=== PATIENT | male | born 1975 | race Caucasian/White ===

== ENCOUNTER 2022-05-11 20:15 | Emergency (ER) | payer MEDICAID ==
[~2022-05-11] VITALS: Ht 186 cm; Wt 142.0 kg
[2022-05-11 20:28] VITALS: BP 154/107
[2022-05-11] MEDS ORDERED: AMOXICILLIN 500 MG (POLYMOX) CAP PO STA (20:47)
[2022-05-11] MEDS ORDERED: PENI500T PO (20:50)
[2022-05-11] MEDS ORDERED: ACHD5005 PO (20:50)
--- NOTE | 2022-05-11 20:51 | ED EENT ---
History of Present Illness General Chief Complaint: Dental Problems/Pain Stated Complaint: DENTAL PAIN Nursing Triage Note: PT STATES RT UPPER DENTAL PAIN FROM A PREVIOUS ISSUE, PRESSURE IN NASAL AREA Source: patient Exam Limitations: no limitations History of Present Illness Date Seen by Provider: May 11, 2022 Time Seen by Provider: 20:49 Initial Comments Patient is a 46-year-old male who presents ED with right upper dental pain. Dental pain started this morning when he woke up. Described as a sharp pain in his right upper tooth. Pain radiating to the right eye with some swelling. History of similar symptoms in the past with a history of similar type pain. Reports worsening swelling. He has a scheduled follow-up with primary care physician tomorrow. Is been taking Tylenol ibuprofen without much improvement. Denies any trauma, visual changes, vomiting, headache, dizziness Allergies and Home Medications Allergies Coded Allergies: No Known Drug Allergies (Unverified , 05/11/22) Patient Home Medication List Home Medication List Reviewed: Yes Hydrocodone/Acetaminophen (Hydrocodone-Acetamin 5-325 mg) 5 Mg-325 Mg Tablet, 1 TAB PO Q4H PRN for PAIN-MODERATE (5-7) Prescribed by: PETAR NICE on 05/11/222050 Penicillin V Potassium (Penicillin V Potassium) 500 Mg Tablet, 500 MG PO QID Prescribed by: PETAR NICE on 05/11/222049 Review of Systems Review of Systems Constitutional: No chills, No diaphoresis, No malaise, No weakness Eyes: Denies Blurred Vision, Denies Decreased Acuity, Denies Photophobia, Denies Previous Injury Ears: Denies Dizziness, Denies Pain, Denies Purulent Discharge Nose: denies clots, denies congestion, denies pain Mouth: pain Throat: denies swelling, denies discharge, denies neck stiffness Cardiovascular: No chest pain Gastrointestinal: No abdominal pain, No diarrhea Musculoskeletal: No back pain, No joint pain All Other Systems Reviewed Negative Unless Noted: Yes Past Ebbfygj-Bxtlxx-Zwdekz Hx Patient Social History Tobacco Use?: Yes Smoking Status: Current Someday Smoker Use of E-Cig and/or Vaping dev: Yes E-Cig or Vaping type used: Nicotine Substance use?: No Alcohol Use?: Yes Alcohol type: Beer Alcohol Frequency: Once in a while Immunizations Up To Date First/Initial COVID19 Vaccinat: NO Past Medical History Surgery/Hospitalization HX: HTN Physical Exam Vital Signs Vital Signs - First Documented 05/11/22 20:28 Temp 36.4 Pulse 71 Resp 20 B/P (MAP) 154/107 (123) Pulse Ox 97 O2 Delivery Room Air Height, Weight, BMI Height: '" Weight: lbs. oz. kg; 41.00 BMI Method: General Appearance: WD/WN, no apparent distress Eyes: bilateral eye normal inspection, bilateral eye PERRL, bilateral eye EOMI Ears: bilateral ear auricle normal Nose: normal inspection Mouth/Throat: other (Decay noted to the right upper canine, premolars. Gum erythema and swelling. No function mass. 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, no motor/sensory deficits, alert, normal mood/affect, oriented x 3 Skin: normal color, warm/dry Progress/Results/Core Measures Results/Orders My Orders Orders - MUSTAPHA VANG Amoxicillin Capsule (Polymox Capsule) (05/11/22 20:47) Ketorolac Injection (Toradol Injection) (05/11/22 21:00) Hydrocodone/Apap 10/325 Tablet (Lortab 1 (05/11/22 20:47) Medications Given in ED Current Medications Medications Dose Ordered Sig/Perry Route Start Time Stop Time Status Last Admin Dose Admin Ketorolac Tromethamine 30 mg ONCE ONCE IM 05/11/22 21:00 05/11/22 21:00 DC 05/11/22 20:58 30 MG Vital Signs/I&O 05/11/22 05/11/22 05/11/22 20:28 20:58 20:58 Temp 36.4 36.4 36.4 Pulse 71 Resp 20 B/P (MAP) 154/107 (123) Pulse Ox 97 O2 Delivery Room Air Blood Pressure Mean: 123 Departure Communication (PCP) Concerning for dental infection. Mild right-sided facial swelling. No periorbital swelling or erythema. Oropharynx patent. No evidence of Arron angina no evidence of fluctuant mass on exam. Decay right upper canine and premolars with previous dental fracture. Did offer dental block. He would rather have IM Toradol and oral pain medication which has helped in the past. Patient Was given dose of antibiotic Patient pain better improved at this time. Will discharge with penicillin VK, hydrocodone. Continue with ibuprofen. Recommend following up with dentist. Did provide oral surgery follow-up as well. If any worsening symptoms return back to ED for further evaluation such as such as swelling, redness Impression Primary Impression: Pain, dental Disposition: HOME, SELF-CARE Condition: Stable Departure-Patient Inst. Decision time for Depature: 20:50 Referrals: EKTA JAUREGUI (PCP) Primary Care Physician VASILIY CHAVARRIA DDS Patient Instructions: Dental Pain Scripts Hydrocodone/Acetaminophen (Hydrocodone-Acetamin 5-325 mg) 5 Mg-325 Mg Tablet 1 TAB PO Q4H PRN for PAIN-MODERATE (5-7), #8 TAB Prov: MUSTAPHA VANG 05/11/22 Penicillin V Potassium (Penicillin V Potassium) 500 Mg Tablet 500 MG PO QID for 7 Days, #28 TAB Prov: MUSTAPHA VANG 05/11/22 MUSTAPHA VANG May 11, 2022 20:51
[2022-05-11] MEDS ORDERED: KETOROLAC 30 MG/ML VIAL IM ONE (21:00)
== END 2022-05-11 20:59 | disposition home or self-care (01) ==
LOC: EDUNIT# 20:15 → ER 20:18
DX: K02.9 Dental caries, unspecified (principal); F17.290 Nicotine dependence, other tobacco product, uncomplicated; Z28.310 Unvaccinated for COVID-19
CPT/HCPCS: 99284